=== PATIENT | female | born 1995 | race Caucasian/White ===

== ENCOUNTER 2019-02-01 09:02 | Emergency (ER) | payer SELFPAY ==
[~2019-02-01] VITALS: Ht 157.5 cm; Wt 46.3 kg
--- NOTE | 2019-02-01 09:19 | NUR ---
Dr Tripp at the bedside for MSE.
[2019-02-01 09:21] LABS: *BILIRUBIN,URIN NEGATIVE (NEGATIVE); *BLOOD, URINE 2+ (NEGATIVE); *COLOR,URINE YELLOW (YELLOW); *KETONES,URINE NEGATIVE (NEGATIVE); LEUKOCYTE ESTERASE ,URINE NEGATIVE (NEGATIVE); NITRITE, URINE NEGATIVE (NEGATIVE); UGLUCOSE NEGATIVE (NEGATIVE)
[2019-02-01 09:29] LABS: *CLARITY,URINE HAZY (CLEAR)
[2019-02-01 09:30] LABS: *URINE HCG, QUAL NEGATIVE (NEGATIVE)
[2019-02-01 09:31] LABS: MUCUS,URINE MANY /LPF (0-FEW); SQUAMOUS EPITHELIAL CELL,UR MODERATE /HPF (NONE SEEN)
[2019-02-01 09:33] LABS: RBC,URINE 20-50 /HPF (0-3)
[2019-02-01 09:34] LABS: BACTERIA,URINE MODERATE /HPF (NONE SEEN)
[2019-02-01] MEDS ORDERED: DOXYCYCLINE HYCLATE 100 MG TABLET ONE (09:59)
[2019-02-01] MEDS ORDERED: PHENAZOPYRIDINE HCL 100 MG TABLET ONE (10:00)
[2019-02-01] MEDS: PHENAZOPYRIDINE HCL 100 MG TABLET PO ONE (10:01)
[2019-02-01] MEDS: DOXYCYCLINE HYCLATE 100 MG TABLET PO ONE (10:01)
--- NOTE | 2019-02-01 10:05 | NUR ---
Flu swab collected and sent to LAB.
--- NOTE | 2019-02-01 10:08 | NUR ---
Patient discharged to home in stable conditon. Written and verbal after care instructions given. Patient verbalizes understanding of instructions.
[2019-02-01 10:09] VITALS: BP 104/75
== END 2019-02-01 10:10 | disposition home or self-care (01) ==
LOC: ER 09:02
DX: N39.0 Urinary tract infection, site not specified (principal)
CPT/HCPCS: 84703; 87077; 87086; 87400; A4663